=== PATIENT | female | born 1930 | race African-American/Black ===

== ENCOUNTER 2017-08-26 16:18 | Inpatient (IN) | payer OTHER ==
[~2017-08-26] VITALS: Ht 167.6 cm; Wt 40.8 kg
[~2017-08-26 16:18] MED LIST: FURO-152 PO; LISI-186 PO; ONDA4TAB50 PO; ONDA4TAB8 SL; QUET100T33 PO; [UNRECOGNIZED DRUG - OTHER] INH; [UNRECOGNIZED DRUG - OTHER] PO
[2017-08-26] MEDS ORDERED: SODIUM CHLORIDE 0.9% 1,000 ML IV ONE (16:36)
[2017-08-26 17:39] LABS: EOSINOPHILS % 0.5 % (0.0-5.0); HEMATOCRIT. 23.7 % (36.0-48.0); HEMOGLOBIN. 7.9 g/dL (12.0-16.0); LYMPHOCYTES % 25.4 % (20.0-50.0); MEAN CORPUSCULAR HEMOGLOBIN 31.5 pg (28.0-32.0); MEAN CORPUSCULAR VOLUME 94.1 fL (81.0-99.0); MEAN PLATELET VOLUME 8.1 fl (7.4-10.4); MONOCYTES % 7.4 % (2.0-8.0); NEUTROPHILS % 65.7 % (40.0-76.0); PLATELET 106 x1000/uL (130-400); RED BLOOD CELL COUNT 2.51 mill/uL (4.2-5.4); RED CELL DISTRIBUTION WIDTH 16.6 % (11.6-14.6)
[2017-08-26 17:41] LABS: CHLORIDE 117 mEq/L (98-107)
[2017-08-26 17:50] LABS: CLARITY URINE CLEAR (CLEAR); COLOR URINE YELLOW (YELLOW); KETONES URINE NEGATIVE (NEGATIVE); LEUKOCYTE ESTERASE URINE NEGATIVE (NEGATIVE); NITRITE URINE NEGATIVE (NEGATIVE); OCCULT BLOOD URINE NEGATIVE (NEGATIVE); PROTEIN URINE 1+ (NEGATIVE); UROBILINOGEN URINE 0.2 E.U./dL (0.2-1.0)
[2017-08-26] MEDS ORDERED: TRAMADOL 50MG TABLET PO PRN (19:45)
[2017-08-26] MEDS ORDERED: ZOLPIDEM TARTRATE 5MG TABLET PO PRN (19:45)
[2017-08-26] MEDS ORDERED: GUAIFENESIN 200MG/10ML SUGAR FREE UDC PO PRN (19:45)
[2017-08-26] MEDS ORDERED: MAGNESIUM/ALUMINUM HYDROXIDE/SIMETHICONE 30ML UDC PO PRN (19:45)
[2017-08-26] MEDS ORDERED: DIPHENHYDRAMINE 50MG/ML VIAL IV PRN (19:45)
[2017-08-26] MEDS ORDERED: ACETAMINOPHEN 325MG TABLET PO PRN (19:45)
[2017-08-26] MEDS ORDERED: NA PHOS,M-B/NA PHOS,DI-BA ENEMA 118ML PR PRN (19:45)
[2017-08-26] MEDS ORDERED: NITROGLYCERIN 0.4MG TABLET SL SL PRN (19:45)
[2017-08-26] MEDS ORDERED: DOCUSATE SODIUM 100MG CAPSULE PO PRN (19:45)
[2017-08-26] MEDS ORDERED: ONDANSETRON HCL 4MG/2ML VIAL IV PRN (19:45)
[2017-08-26] MEDS ORDERED: IPRATROPIUM/ALBUTEROL 0.5-3(2.5)MG/3ML NEB INH PRN (19:45)
[2017-08-26] MEDS ORDERED: LORAZEPAM 0.5MG TABLET PO PRN (19:45)
[2017-08-26] MEDS ORDERED: MORPHINE SULFATE 4 MG/ML CPJ (NOT FOR IM USE) IV PRN (19:45)
[2017-08-26] MEDS ORDERED: CLONIDINE 0.1MG TABLET PO PRN (19:45)
[2017-08-26] MEDS ORDERED: FAMOTIDINE 20MG TABLET PO SCH (21:00)
[2017-08-26 22:15] VITALS: BP 124/93
[2017-08-26] MEDS: PANTOPRAZOLE SODIUM 40 MG/VIAL IV SCH (23:18)
[2017-08-27 02:23] LABS: CREATINE KINASE 88 IU/L (26-192)
[2017-08-27 02:24] LABS: CREATINE KINASE MB FRACTION 1.5 ng/mL (0.5-3.6)
[2017-08-27 04:00] VITALS: BP 122/88
[2017-08-27 08:00] VITALS: BP_SYST 118; BP_SYST 127; BP_DIAS 78; BP_DIAS 98
[2017-08-27 08:38] VITALS: BP 127/98
[2017-08-27] MEDS: PANTOPRAZOLE SODIUM 40 MG/VIAL IV SCH ×2 (11:11→22:49)
[2017-08-27 11:30] LABS: CREATINE KINASE 70 IU/L (26-192)
[2017-08-27 12:00] VITALS: BP 112/82
[2017-08-27 15:27] LABS: BASOPHILS % 0.9 % (0.0-2.0); EOSINOPHILS % 0.6 % (0.0-5.0); HEMATOCRIT. 24.9 % (36.0-48.0); HEMOGLOBIN. 8.2 g/dL (12.0-16.0); LYMPHOCYTES % 35.2 % (20.0-50.0); MEAN CORPUSCULAR HEMOGLOBIN 31.2 pg (28.0-32.0); MEAN CORPUSCULAR VOLUME 94.7 fL (81.0-99.0); MEAN PLATELET VOLUME 7.9 fl (7.4-10.4); MONOCYTES % 6.6 % (2.0-8.0); NEUTROPHILS % 56.7 % (40.0-76.0); PLATELET 110 x1000/uL (130-400); RED BLOOD CELL COUNT 2.63 mill/uL (4.2-5.4); RED CELL DISTRIBUTION WIDTH 16.7 % (11.6-14.6)
[2017-08-27 16:00] VITALS: BP_SYST 101; BP_SYST 110; BP_DIAS 71; BP_DIAS 78
[2017-08-27 20:00] VITALS: BP 121/86
[2017-08-28] VITALS (7 sets, daily range): BP systolic 109–132; BP diastolic 75–101
[2017-08-28] MEDS: PANTOPRAZOLE SODIUM 40 MG/VIAL IV SCH ×2 (08:46→21:00)
[2017-08-28 11:09] LABS: INR 1.3; PARTIAL THROMBOPLASTIN TIME 26.6 sec (23.4-31.0); PROTHROMBIN TIME 13.5 sec (9.4-11.6)
[2017-08-28 11:16] LABS: FOLIC ACID (FOLATE) SERUM 8.4 ng/mL (>5.38)
[2017-08-28 11:35] LABS: BASOPHILS % 1.8 % (0.0-2.0); EOSINOPHILS % 1.4 % (0.0-5.0); HEMATOCRIT. 25.4 % (36.0-48.0); HEMOGLOBIN. 8.4 g/dL (12.0-16.0); LYMPHOCYTES % 34.5 % (20.0-50.0); MEAN CORPUSCULAR HEMOGLOBIN 31.5 pg (28.0-32.0); MEAN PLATELET VOLUME 8.6 fl (7.4-10.4); MONOCYTES % 7.1 % (2.0-8.0); NEUTROPHILS % 55.2 % (40.0-76.0); PLATELET 100 x1000/uL (130-400); RED BLOOD CELL COUNT 2.67 mill/uL (4.2-5.4); RED CELL DISTRIBUTION WIDTH 16.9 % (11.6-14.6)
[2017-08-28 11:37] LABS: CHLORIDE 115 mEq/L (98-107)
[2017-08-28] MEDS ORDERED: NA PHOS,M-B/NA PHOS,DI-BA ENEMA 118ML PR PRN (12:00)
[2017-08-28] MEDS ORDERED: BISACODYL 10MG SUPP PR SCH (12:00)
[2017-08-28] MEDS ORDERED: BISACODYL 10MG SUPP PR PRN (12:00)
[2017-08-29 04:00] VITALS: BP 118/89
[2017-08-29 08:00] VITALS: BP 125/88
[2017-08-29] MEDS: PANTOPRAZOLE SODIUM 40 MG/VIAL IV SCH ×2 (08:44→21:58)
[2017-08-29 12:00] VITALS: BP 113/84
[2017-08-29 16:00] VITALS: BP 124/89
[2017-08-29 20:00] VITALS: BP 112/85
[2017-08-30] VITALS: BP 131/97
[2017-08-30 04:00] VITALS: BP 126/88
[2017-08-30 08:00] VITALS: BP 117/87
[2017-08-30] MEDS: PANTOPRAZOLE SODIUM 40 MG/VIAL IV SCH ×2 (08:45→21:04)
[2017-08-30] MEDS: POLYETHYLENE GLYCOL 3350 (17GM) 1 DOSE PACK PO SCH (10:00)
[2017-08-30 12:00] VITALS: BP 123/89
[2017-08-30 12:03] LABS: HEMATOCRIT 25.6 % (36.0-48.0); HEMOGLOBIN 8.4 g/dL (12.0-16.0)
[2017-08-30 16:00] VITALS: BP 118/79
[2017-08-30] MEDS: DOCUSATE SODIUM 100MG CAPSULE PO SCH (17:35)
[2017-08-30 20:00] VITALS: BP 99/75
[2017-08-31] VITALS: BP 118/86
[2017-08-31 04:00] VITALS: BP 114/84
[2017-08-31 08:00] VITALS: BP 117/88
[2017-08-31] MEDS: DOCUSATE SODIUM 100MG CAPSULE PO SCH (09:00)
[2017-08-31] MEDS: PANTOPRAZOLE SODIUM 40 MG/VIAL IV SCH ×2 (10:13→21:20)
[2017-08-31] MEDS: POLYETHYLENE GLYCOL 3350 (17GM) 1 DOSE PACK PO SCH (10:15)
[2017-08-31] MEDS: DOCUSATE SODIUM 250MG CAPSULE PO SCH ×2 (10:20→19:57)
[2017-08-31 12:00] VITALS: BP 116/83
[2017-08-31 16:00] VITALS: BP 114/85
[2017-08-31 20:00] VITALS: BP 104/74
[2017-09-01] VITALS: BP 101/71
[2017-09-01 04:00] VITALS: BP 129/96
[2017-09-01 08:00] VITALS: BP 134/97
[2017-09-01] MEDS: POLYETHYLENE GLYCOL 3350 (17GM) 1 DOSE PACK PO SCH (09:19)
[2017-09-01] MEDS: DOCUSATE SODIUM 250MG CAPSULE PO SCH ×2 (09:19→17:33)
[2017-09-01] MEDS: PANTOPRAZOLE SODIUM 40 MG/VIAL IV SCH ×2 (09:57→21:24)
[2017-09-01] MEDS ORDERED: ONDANSETRON 4MG ODT PO PRN (10:15)
[2017-09-01 12:00] VITALS: BP 106/84
[2017-09-01 16:00] VITALS: BP 104/75
[2017-09-01 20:04] VITALS: BP 107/73
[2017-09-02] VITALS (7 sets, daily range): BP systolic 95–124; BP diastolic 50–92
[2017-09-02] MEDS: DOCUSATE SODIUM 250MG CAPSULE PO SCH ×2 (09:30→17:59)
[2017-09-02] MEDS: POLYETHYLENE GLYCOL 3350 (17GM) 1 DOSE PACK PO SCH (09:30)
[2017-09-02] MEDS: PANTOPRAZOLE SODIUM 40 MG/VIAL IV SCH ×2 (09:55→21:25)
[2017-09-03] VITALS: BP 101/68
[2017-09-03 04:00] VITALS: BP 120/89
[2017-09-03 08:00] VITALS: BP 129/84
[2017-09-03] MEDS: POLYETHYLENE GLYCOL 3350 (17GM) 1 DOSE PACK PO SCH (09:34)
[2017-09-03] MEDS: PANTOPRAZOLE SODIUM 40 MG/VIAL IV SCH ×2 (09:34→20:47)
[2017-09-03] MEDS: DOCUSATE SODIUM 250MG CAPSULE PO SCH ×2 (09:34→17:58)
[2017-09-03 12:00] VITALS: BP 101/77
[2017-09-03 16:00] VITALS: BP 109/69
[2017-09-03 20:00] VITALS: BP 111/84
[2017-09-04] VITALS: BP 110/80
[2017-09-04 04:00] VITALS: BP 126/93
[2017-09-04 08:00] VITALS: BP 112/79
[2017-09-04] MEDS: DOCUSATE SODIUM 250MG CAPSULE PO SCH ×2 (09:00→17:00)
[2017-09-04] MEDS: POLYETHYLENE GLYCOL 3350 (17GM) 1 DOSE PACK PO SCH (09:00)
[2017-09-04] MEDS: PANTOPRAZOLE SODIUM 40 MG/VIAL IV SCH ×2 (10:13→20:53)
[2017-09-04 12:00] VITALS: BP 110/74
[2017-09-04 16:00] VITALS: BP 116/86
[2017-09-04 20:00] VITALS: BP 113/77
[2017-09-05] VITALS (7 sets, daily range): BP systolic 96–128; BP diastolic 69–88
[2017-09-05] MEDS: POLYETHYLENE GLYCOL 3350 (17GM) 1 DOSE PACK PO SCH (08:05)
[2017-09-05] MEDS: DOCUSATE SODIUM 250MG CAPSULE PO SCH (08:05)
[2017-09-05] MEDS: PANTOPRAZOLE SODIUM 40 MG/VIAL IV SCH (08:05)
[2017-09-05] MEDS ORDERED: ZINC220T MT (16:53)
[2017-09-05] MEDS ORDERED: PROT40 MT (16:53)
[2017-09-05] MEDS ORDERED: SENN-46 MT (16:54)
== END 2017-09-05 17:30 | DRG 378 ==
LOC: ER 16:52 → 7WST 16:55 → EDBEDREQ 19:04 → ENRESERV 19:41 → SUPCPDRO 19:42
PROVIDERS: ADMIT Internal Medicine; ATTEND Internal Medicine
DX: K92.2 Gastrointestinal hemorrhage, unspecified (principal); E44.0 Moderate protein-calorie malnutrition; D62 Acute posthemorrhagic anemia; E87.0 Hyperosmolality and hypernatremia; Q43.8 Other specified congenital malformations of intestine; Z68.1 Body mass index [BMI] 19.9 or less, adult; D69.6 Thrombocytopenia, unspecified; J44.9 Chronic obstructive pulmonary disease, unspecified; L89.150 Pressure ulcer of sacral region, unstageable; D50.9 Iron deficiency anemia, unspecified; D63.8 Anemia in other chronic diseases classified elsewhere; F03.90 Unspecified dementia, unspecified severity, without behavioral disturbance, psychotic disturbance, mood disturbance, and anxiety; I50.9 Heart failure, unspecified; I11.0 Hypertensive heart disease with heart failure; K59.00 Constipation, unspecified
CPT/HCPCS: 36415; 71045; 74018; 74176; 76700; 80048; 80053; 80061; 80076; 81003; 82270; 82550; 82553; 82607; 82728; 82746; 83036; 83540; 83550; 83690; 84134; 84484; 85014; 85018; 85025; 85044; 85610; 85730; 86850; 86900; 93005; 93970; 96360; 96361; 97116; 97162; 97166; 97530; 99285; C9113; J7030